=== PATIENT | female | born 1985 | race Caucasian/White ===

== ENCOUNTER 2016-10-01 22:15 | Emergency (ER) | payer OTHER ==
[~2016-10-01] VITALS: Wt 69.5 kg
--- NOTE | 2016-10-02 00:01 | ERD ---
ER Documentation Chief Complaint Date/Time DATE: 10/02/16 TIME: 00:00 Chief Complaint cough on & off x6 mos, states she choked on her own saliva & x 2 min HPI 28-year-old female otherwise healthy comes in with a dry cough for 6 months, she and she had a choking episode this afternoon. Patient was at home with her and she developed a cough, it lasted for approximately 3 minutes and she states that she had had 3 large belches and the cough immediately resolved. She does not have any symptoms at this time. She has no history of aspiration , fever, chills, chest pain. ROS All systems reviewed and are negative except as per history of present illness. Medications Home Meds Active Scripts Simethicone (GAS RELIEF) 125 Mg Capsule, 125 MG PO BID, #15 CAP Prov:SPIKE MIN PA-C 10/02/16 Allergies Allergies: Coded Allergies: No Known Allergy (Unverified , 02/05/14) PMhx/Soc Medical and Surgical Hx: pt denies Medical Hx, pt denies Surgical Hx History of Surgery: No Anesthesia Reaction: No Hx Neurological Disorder: No Hx Respiratory Disorders: No Hx Cardiac Disorders: No Hx Psychiatric Problems: No Hx Miscellaneous Medical Probl: No Hx Alcohol Use: No Hx Substance Use: No Hx Tobacco Use: No Smoking Status: Never smoker Physical Exam Vitals Vital Signs Date Time Temp Pulse Resp B/P Pulse Ox O2 Delivery O2 Flow Rate FiO2 10/01/16 22:27 98.0 91 20 176/82 99 Physical Exam General: Well-developed, well-nourished. The patient appears in no acute distress. HEENT: Head is normocephalic, atraumatic. No scleral icterus. Pupils are equal , round, and reactive. Oral mucous membranes are moist. No pharyngeal erythema. Neck: Supple. Nontender. Lungs: Clear to auscultation. Normal air movement. Heart: Regular rate and rhythm. S1 and S2 are normal. No murmurs, gallops, or rubs. Abdomen: Soft, nontender, nondistended. Bowel sounds are normoactive. Extremities: No clubbing or cyanosis. Normal pulses. Moving extremities x 4. No weakness. Neurologic: Alert and oriented 3. No focal deficits. Skin: Normal turgor. No rash or lesions. Results 24 hrs PROCEDURE: CHEST - 1 VIEW CLINICAL INDICATION: 31-year-old female with chest pain and cough. TECHNIQUE: A single frontal AP upright view of the chest was performed portably. The images were reviewed on a PACS workstation. COMPARISON: None. FINDINGS: The cardiomediastinal silhouette has a normal appearance. There is no evidence for an infiltrate. There is no evidence for congestive heart failure. There is no evidence for pneumothorax. The osseous structures are intact. IMPRESSION: No evidence for active cardiopulmonary disease. .Ed Russ MD, MD Date Time Electronically viewed and signed by .Ed Russ MD, MD on 10/02/2016 01:11 Procedures/MDM 31-year-old female comes in with a coughing spell, chest x-ray was unremarkable. Patient wanted to leave the emergency department, she states that she does not want wish to stay for the results, chest x-ray was however normal. No evidence of mass, pneumonia or pneumothorax. Departure Diagnosis: Primary Impression: Cough Condition: SPIKE Obregon PA-C Oct 02, 2016 00:01
[2016-10-02] MEDS ORDERED: [UNRECOGNIZED DRUG - CODE] PO (01:11)
--- NOTE | 2016-10-02 01:11 | RADRPT ---
PROCEDURE: CHEST - 1 VIEW CLINICAL INDICATION: 31-year-old female with chest pain and cough. TECHNIQUE: A single frontal AP upright view of the chest was performed portably. The images were reviewed on a PACS workstation. COMPARISON: None. FINDINGS: The cardiomediastinal silhouette has a normal appearance. There is no evidence for an infiltrate. There is no evidence for congestive heart failure. There is no evidence for pneumothorax. The osseou s structures are intact. IMPRESSION: No evidence for active cardiopulmonary disease. .Ed Russ MD, MD Date Time Electronically viewed and signed by .Ed Russ MD, on 10/02/2016 01:11 .M/
== END 2016-10-02 01:17 | disposition left against medical advice (07) ==
LOC: FTE 22:15
DX: R05 Cough (principal)
CPT/HCPCS: 71010; Z7502